=== PATIENT | female | born 1980 | race Two or more races ===

== ENCOUNTER 2017-04-12 01:56 | Emergency (ER) | payer SELFPAY ==
[2017-04-12 02:05] VITALS: TEMP 99.1; O2SAT 95
[2017-04-12] MEDS ORDERED: fentaNYL 100 MCG/2 ML INJ ONE (02:21)
[2017-04-12] MEDS ORDERED: ONDANSETRON 4 MG/2 ML VIAL ONE (02:21)
[2017-04-12] MEDS ORDERED: fentaNYL 100 MCG/2 ML INJ IVP ONE (02:25)
[2017-04-12] MEDS ORDERED: NS 1,000 ML IV ONE (02:25)
[2017-04-12] MEDS ORDERED: ONDANSETRON 4 MG/2 ML VIAL IVP ONE (02:25)
--- NOTE | 2017-04-12 02:26 | EDPHY ---
H & P Stated Complaint: ABD PAIN X2 WKS, SAW PEOPLES LAST WEEK, RUQ, WORSE WHILE BREATHING COLD AIR Time Seen by Provider: 04/12/17 02:14 HPI/ROS: Chief Complaint: Right upper abdominal pain HPI: 36-year-old woman presenting with 2 weeks of intermittent right upper abdominal pain. Pain got worse yesterday evening up to a 10/10. Right as a 7/10. Is not radiating. Has had some mild urinary frequency for the last 3 days. No lower abdominal tenderness. Some nausea, no vomiting. No chest pain or shortness breath. Was seen at the [facility] but did not have any testing or imaging done. A been taking any medicine. Does not have a history of similar episodes in the past. ROS: 10 point Review of Systems is negative except as noted in the HPI. PMH: Denies Social History: No smoking, no alcohol, no recreational drug use Family History: non-contributory Physical Exam: Gen: Awake, Alert, No Distress HEENT: Nose: no rhinorrhea Eyes: PERRLA, EOMI Mouth: Moist mucosa Neck: Supple, no JVD Chest: nontender, lungs clear to auscultation Heart: S1, S2 normal, no murmur Abd: Soft, she has right upper quadrant tenderness with a positive Hyde sign Back: no CVA tenderness, no midline tenderness Ext: no edema, non-tender Skin: no rash Neuro: CN II-XII intact, Sensation grossly intact, Strength 5/5 in bilateral upper and lower extremities - Personal History LMP (Females 10-55): 15-21 Days Ago Current Tetanus/Diphtheria Vaccine: Unsure - Medical/Surgical History Hx Asthma: No Hx Chronic Respiratory Disease: No Hx Diabetes: No Hx Cardiac Disease: No Hx Renal Disease: No Hx Cirrhosis: No Hx Alcoholism: No Hx HIV/AIDS: No Hx Splenectomy or Spleen Trauma: No Other PMH: DENIES, IUD IN PLACE - Social History Smoking Status: Never smoked Constitutional: Initial Vital Signs Temperature (C) 37.3 C 04/12/17 02:00 Heart Rate 97 04/12/17 02:00 Respiratory Rate 20 04/12/17 02:00 Blood Pressure 134/82 H 04/12/17 02:00 O2 Sat (%) 95 04/12/17 02:00 O2 Delivery Mode Room Air Allergies/Adverse Reactions: No Known Allergies Allergy (Unverified 04/12/17 02:00) Home Medications: Medication Instructions Recorded NK [No Known Home Meds] 04/12/17 Medical Decision Making - Diagnostics Imaging Results: Right upper ultrasound small gallstones, no gallbladder wall thickening, common bile duct is normal. Interpreted by Dr. Bolivar. CT scan of the abdomen pelvis is negative. No stones, normal appendix. Interpreted by Dr. Bolivar. ED Course/Re-evaluation: Patient presenting with right upper quadrant pain and some back pain. Ultrasound shows small gallstones. She does have hematuria however CT scan is negative for kidney stone. Symptoms likely secondary to gallstones. Will be discharged with referral to General surgery for outpatient follow-up. - Data Points Laboratory Results: Laboratory Results 04/12/17 02:30 04/12/17 02:30 04/12/17 04/12/17 04/12/17 02:30 02:30 02:12 WBC 7.90 10^3/uL 10^3/uL (3.80-9.50) RBC 4.19 10^6/uL 10^6/uL (4.18-5.33) Hgb 13.1 g/dL g/dL (12.6-16.3) Hct 38.9 % % (38.0-47.0) MCV 92.8 fL fL (81.5-99.8) MCH 31.3 pg pg (27.9-34.1) MCHC 33.7 g/dL g/dL (32.4-36.7) RDW 12.5 % % (11.5-15.2) Plt Count 183 10^3/uL 10^3/uL (150-400) MPV 12.6 fL H fL (8.7-11.7) Neut % (Auto) 67.5 % % (39.3-74.2) Lymph % (Auto) 24.9 % % (15.0-45.0) [place] % (Auto) 6.3 % % (4.5-13.0) Eos % (Auto) 0.5 % L % (0.6-7.6) Baso % (Auto) 0.5 % % (0.3-1.7) Nucleat RBC Rel Count 0.0 % % (0.0-0.2) Absolute Neuts (auto) 5.33 10^3/uL 10^3/uL (1.70-6.50) Absolute Lymphs (auto) 1.97 10^3/uL 10^3/uL (1.00-3.00) Absolute Monos (auto) 0.50 10^3/uL 10^3/uL (0.30-0.80) Absolute Eos (auto) 0.04 10^3/uL 10^3/uL (0.03-0.40) Absolute Basos (auto) 0.04 10^3/uL 10^3/uL (0.02-0.10) Absolute Nucleated RBC 0.00 10^3/uL 10^3/uL (0-0.01) Immature Gran % 0.3 % % (0.0-1.1) Immature Gran # 0.02 10^3/uL 10^3/uL (0.00-0.10) Sodium 144 mEq/L mEq/L (134-144) Potassium 3.9 mEq/L mEq/L (3.5-5.2) Chloride 107 mEq/L mEq/L (97-110) Carbon Dioxide 26 mEq/l mEq/l (22-31) Anion Gap 11 mEq/L mEq/L (8-16) BUN 10 mg/dL mg/dL (7-23) Creatinine 0.6 mg/dL mg/dL (0.6-1.0) Estimated GFR > 60 Glucose 104 mg/dL H mg/dL (70-100) Calcium 8.7 mg/dL mg/dL (8.5-10.4) Total Bilirubin 0.1 mg/dL mg/dL (0.1-1.4) AST 19 IU/L IU/L (14-46) ALT 32 IU/L IU/L (9-52) Alkaline Phosphatase 73 IU/L IU/L (38-126) Total Protein 6.7 g/dL g/dL (6.3-8.2) Albumin 3.6 g/dL g/dL (3.5-5.0) Lipase 101 IU/L IU/L (23-300) Urine Color PALE YELLOW Urine Appearance CLEAR Urine pH 7.0 (5.0-7.5) Ur Specific [place] 1.010 (1.002-1.030) Urine Protein NEGATIVE (NEGATIVE) Urine Ketones NEGATIVE (NEGATIVE) Urine Blood 2+ H (NEGATIVE) Urine Nitrate NEGATIVE (NEGATIVE) Urine Bilirubin NEGATIVE (NEGATIVE) Urine Urobilinogen NEGATIVE EU EU (0.2-1.0) Ur Leukocyte Esterase NEGATIVE (NEGATIVE) Urine RBC 25-50 /hpf H /hpf (0-3) Urine WBC 1-3 /hpf /hpf (0-3) Ur Epithelial Cells TRACE /lpf /lpf (NONE-1+) Urine Mucus TRACE /lpf /lpf (NONE-1+) Urine Glucose NEGATIVE (NEGATIVE) Medications Given: Discontinued Medications Fentanyl (Sublimaze) 50 mcg IVP EDNOW ONE Stop: 04/12/17 02:26 Last Admin: 04/12/17 02:31 Dose: 50 mcg Sodium Chloride (Ns) 1,000 mls @ 0 mls/hr IV ONCE ONE; Wide Open PRN Reason: Protocol Stop: 04/12/17 02:26 Last Admin: 04/12/17 02:31 Dose: 1,000 mls Ondansetron HCl (Zofran) 4 mg IVP EDNOW ONE Stop: 04/12/17 02:26 Last Admin: 04/12/17 02:32 Dose: 4 mg Departure - Departure Disposition: Home, Routine, Self-Care Clinical Impression: Gallstones Condition: Good Instructions: Biliary Colic (ED) Additional Instructions: Alternate acetaminophen (1000 mg) with ibuprofen (400 mg) every 4 hours as needed for pain. Follow up with General surgery in 4-5 days for evaluation of her gallstones. Return to the emergency depart for increasing pain, fevers, chills, uncontrolled nausea vomiting or any other concerns. Referrals: Tania Ceja MD [Primary Care Provider] - As per Instructions Den Mercedes MD [Medical Doctor] - As per Instructions
[2017-04-12 02:41] LABS: PLATELET COUNT 183 10^3/uL (150-400)
[2017-04-12 03:34] VITALS: BP 130/86; PULSE 98; RESP 19
== END 2017-04-12 04:32 | disposition home or self-care (01) ==
DX: K80.20 Calculus of gallbladder without cholecystitis without obstruction (principal); E86.9 Volume depletion, unspecified
CPT/HCPCS: 96374; J2405; J3010